=== PATIENT | female | born 1990 | race Caucasian/White ===

== ENCOUNTER 2021-07-22 20:39 | Emergency (ER) | payer OTHER, SELFPAY ==
--- NOTE | 2021-07-22 | ECG_ITS ---
Test Reason : DYSPNEA Blood Pressure : / mmHG Vent. Rate : 082 BPM Atrial Rate : 082 BPM P-R Int : 146 ms QRS Dur : 094 ms QT Int : 360 ms P-R-T Axes : 049 -15 000 degrees QTc Int : 420 ms Normal sinus rhythm Incomplete right bundle branch block Minimal voltage criteria for LVH, may be normal variant ( R in aVL ) Borderline ECG When compared with ECG of 18-JAN-2019 09:59, Previous ECG has undetermined rhythm, needs review Referred By: Generic ED Physician Electronically Signed By:IRVING FLANNERY MD
--- NOTE | ~2021-07-22 | XR_ITS ---
EXAMINATION: XR CHEST CLINICAL INFORMATION: Shortness of breath. COMPARISON: Chest radiograph 01/18/2019 TECHNIQUE: Frontal view of the chest was obtained. FINDINGS: No significant abnormality is noted involving the heart, lungs, mediastinum, bony thorax or soft tissues. There is a loop recorder to the left of the thoracic spine. XR/XR chest 1V IMPRESSION: Unremarkable examination.
[2021-07-22 20:42] VITALS: BP 141/91; PULSE 94; RESP 18; TEMP 35.6; O2SAT 100; BMI 33.8
[2021-07-22 21:02] LABS: MANUAL DIFF FLAG NO
[2021-07-22 21:05] VITALS: BP 125/91; PULSE 82; RESP 17; TEMP 37.3; O2SAT 97
--- NOTE | 2021-07-22 21:11 | ED_ITS ---
HPI - SOB/Dyspnea General Chief Complaint: Arrhythmia/Palpitations Stated Complaint: Sob, chest pains Time Seen by Provider: 07/22/21 21:11 Source: patient Mode of arrival: ambulatory Limitations: no limitations History of Present Illness HPI Narrative: Patient with feeling congested with dry cough for last 3 days already vaccinated against COVID had subjective fever on arrival patient is saturating 100% at room air cough is mostly dry with clear nasal discharge Related Data Previous Rx's Medication Instructions Recorded albuterol sulfate 90 mcg/actuation 2 puff INHALATION Q4-6H #8.5 g 07/22/21 aerosol inhaler (ProAir HFA) codeine 10 mg-guaifenesin 100 mg/5 10 ml PO Q6H PRN #237 ml 07/22/21 mL oral liquid prednisone 20 mg tablet 40 mg PO DAILY #10 tab 07/22/21 Allergies Allergy/AdvReac Type Severity Reaction Status Date / Time No Known Allergies Allergy Unverified 11/30/19 16:24 [No Known Allergies*] Review of Systems Review of Systems: Yes all other systems are reviewed and are negative PMFSH Past Medical History Medical History V-tach Surgical History H/O: Social History Social History Alcohol intake: never Patient Tobacco Use Status: Never used Tobacco Use of substances other than those prescribed or required for medical reasons: No Advance Directives: Yes Advance Directives Information Provided: No Advance Directives on File: No Patient : No Physical Exam Vital Signs: Vital Signs: Last Vital Signs Temp 98.2 F 07/22/21 22:47 Pulse 78 07/22/21 22:47 Resp 17 07/22/21 22:47 BP 131/94 H 07/22/21 22:47 Pulse Ox 99 07/22/21 22:47 BMI result Body Mass Index 33.8 Appearance: Alert. Oriented X3. No acute distress. Frequent dry cough Eyes: No pallor ENT: Pharynx normal. Oral Mucosa moist Neck: Normal inspection. Neck supple. CVS: Normal heart rate and rhythm. Pulses normal. Respiratory: No respiratory distress. Equal air entry bilateral, no wheezing/rales, prolonged expiration with frequent cough Abdomen: Soft and nontender. Bowel sounds are present, no mass palpable, no CVA tenderness Skin: Skin warm and dry. Normal skin color. Normal skin turgor. Extremities: No lower extremity edema. No calf tenderness Neuro: Oriented X 3. No motor deficit. MDM - SOB/Dyspnea MDM Narrative Medical decision making narrative: Patient dry cough for 3- 4 days COVID negative likely bronchitis will discharge patient home on prednisone and inhaler chest x-ray negative Lab Data Attestation: I reviewed the patient's lab results. Result diagrams: 07/22/21 20:54 07/22/21 20:54 Labs: Lab Results 07/22/21 07/22/21 07/22/21 Range/Units 20:54 20:54 20:54 WBC 6.4 (4.8-10.8) X10*3/uL RBC 4.73 (4.20-5.50) X10*6/uL Hgb 12.7 (12.0-16.0) g/dl Hct 39.7 (37.0-47.0) % MCV 83.9 (80.0-98.0) fL MCH 26.8 L (27.0-33.0) pg MCHC 32.0 (31.0-35.0) g/dl RDW 13.2 (11.0-16.0) % Plt Count 224 (160-400) X10*3/uL MPV 10.9 (9.4-12.3) fL Immature Gran % (Auto) 0.3 (0.0-0.4) % Neut % (Auto) 55.5 (45-73) % Lymph % (Auto) 34.7 (20-40) % [place] % (Auto) 7.2 (2-11) % Eos % (Auto) 2.0 (0-4) % Baso % (Auto) 0.3 (0-2) % Lymph # (Auto) 2.2 (1.2-4.9) X10*3/uL [place] # (Auto) 0.5 (0.1-1.2) X10*3/uL Eos # (Auto) 0.1 (0.0-0.4) X10*3/uL Baso # (Auto) 0.0 (0.0-0.2) X10*3/uL Abs Immat Gran (auto) 0.02 (0.00-0.03) X10*3/uL Absolute Neuts (auto) 3.5 (2.0-8.3) x10*3/uL Absolute Nucleated RBC 0.000 (0.0-0.012) X10*3/uL Nucleated RBC % (auto) 0.0 (0.0-0.2) /100WBC Sodium 139 (135-145) mmol/L Potassium 4.6 (3.3-5.1) mmol/L Chloride 106 (96-108) mmol/L Carbon Dioxide 27 (22-29) mmol/L Anion Gap 11 L (12-20) BUN 16 (9-16) mg/dL Creatinine 0.85 (0.5-1.4) mg/dL Estim Creat Clear Calc 97.2 Estimated GFR > 60 Random Glucose 90 (60-115) mg/dL Calcium 10.1 (8.4-10.2) mg/dL Total Bilirubin 0.4 (0.0-1.0) mg/dL AST 24 (5-31) U/L ALT 41 H (0-31) U/L Alkaline Phosphatase 54 (39-117) U/L Troponin I High Sens < 3.5 (<3.5-17.0) ng/L Total Protein 7.4 (6.5-8.0) g/dL Albumin 4.4 (3.5-5.0) g/dL COVID-19 (STEPHEN) (Negative) COVID-19 Clin Com Influenza Type A (MOE) (Negative) Influenza Type A (PCR) (Negative) Influenza Type B (MOE) (Negative) Influenza Type B (PCR) (Negative) Influenza A & B Note RSV RNA Qual (PCR) (Negative) SARS-CoV-2 RNA (RT-PCR) (Negative) 07/22/21 07/22/21 07/22/21 Range/Units 20:54 20:54 21:37 WBC (4.8-10.8) X10*3/uL RBC (4.20-5.50) X10*6/uL Hgb (12.0-16.0) g/dl Hct (37.0-47.0) % MCV (80.0-98.0) fL MCH (27.0-33.0) pg MCHC (31.0-35.0) g/dl RDW (11.0-16.0) % Plt Count (160-400) X10*3/uL MPV (9.4-12.3) fL Immature Gran % (Auto) (0.0-0.4) % Neut % (Auto) (45-73) % Lymph % (Auto) (20-40) % [place] % (Auto) (2-11) % Eos % (Auto) (0-4) % Baso % (Auto) (0-2) % Lymph # (Auto) (1.2-4.9) X10*3/uL [place] # (Auto) (0.1-1.2) X10*3/uL Eos # (Auto) (0.0-0.4) X10*3/uL Baso # (Auto) (0.0-0.2) X10*3/uL Abs Immat Gran (auto) (0.00-0.03) X10*3/uL Absolute Neuts (auto) (2.0-8.3) x10*3/uL Absolute Nucleated RBC (0.0-0.012) X10*3/uL Nucleated RBC % (auto) (0.0-0.2) /100WBC Sodium (135-145) mmol/L Potassium (3.3-5.1) mmol/L Chloride (96-108) mmol/L Carbon Dioxide (22-29) mmol/L Anion Gap (12-20) BUN (9-16) mg/dL Creatinine (0.5-1.4) mg/dL Estim Creat Clear Calc Estimated GFR Random Glucose (60-115) mg/dL Calcium (8.4-10.2) mg/dL Total Bilirubin (0.0-1.0) mg/dL AST (5-31) U/L ALT (0-31) U/L Alkaline Phosphatase (39-117) U/L Troponin I High Sens (<3.5-17.0) ng/L Total Protein (6.5-8.0) g/dL Albumin (3.5-5.0) g/dL COVID-19 (STEPHEN) Negative (Negative) COVID-19 Clin Com See Note Influenza Type A (MOE) Negative (Negative) Influenza Type A (PCR) NEGATIVE (Negative) Influenza Type B (MOE) Negative (Negative) Influenza Type B (PCR) NEGATIVE (Negative) Influenza A & B Note See Note RSV RNA Qual (PCR) NEGATIVE (Negative) SARS-CoV-2 RNA (RT-PCR) NEGATIVE (Negative) Discharge Plan Discharge Clinical Impression: Acute bronchitis Patient Disposition: Home, Self-Care Instructions: Acute Bronchitis (ED) Additional Instructions: Drink plenty of fluids and take medication as prescribed Follow with PCP if not better Tylenol/Motrin for pain/fever Prescriptions: New codeine-guaifenesin 10-100 mg/5 mL liquid 10 ml PO Q6H PRN (Reason: cough) Qty: 237 0RF albuterol sulfate [ProAir HFA] 90 mcg/actuation HFA aerosol inhaler 2 puff inhalation Q4-6H Qty: 8.5 0RF prednisone 20 mg tablet 40 mg PO DAILY Qty: 10 0RF Interventions: ED Discharge Assessment Last Done: 07/23/21 00:13 Discharge Date/Time: 07/23/21 00:14
[2021-07-22 21:13] LABS: Basophils Percent Auto 0.3 % (0-2); Eosinophils Absolute Auto 0.1 X10*3/uL (0.0-0.4); Hematocrit 39.7 % (37.0-47.0); Hemoglobin 12.7 g/dl (12.0-16.0); Imm Gran Abs Auto 0.02 X10*3/uL (0.00-0.03); Imm Gran Pct Auto 0.3 % (0.0-0.4); Lymphocytes Absolute Auto 2.2 X10*3/uL (1.2-4.9); Lymphocytes Percent Auto 34.7 % (20-40); Mean Corpuscular Hemoglobin 26.8 pg (27.0-33.0); Mean Corpuscular Volume 83.9 fL (80.0-98.0); Mean Platelet Volume 10.9 fL (9.4-12.3); Monocytes Absolute Auto 0.5 X10*3/uL (0.1-1.2); Monocytes Percent Auto 7.2 % (2-11); Neutrophils Absolute Auto 3.5 x10*3/uL (2.0-8.3); Neutrophils Percent Auto 55.5 % (45-73); Platelet Count 224 X10*3/uL (160-400); Red Blood Count 4.73 X10*6/uL (4.20-5.50); Red Cell Distribution Width 13.2 % (11.0-16.0); White Blood Count 6.4 X10*3/uL (4.8-10.8)
[2021-07-22 21:24] LABS: COVID-19 Test Negative (Negative); IDNOW Serial# 9DB6401D
[2021-07-22 21:25] LABS: Influenza A Negative (Negative); Influenza B2 Negative (Negative)
[2021-07-22 21:30] LABS: Alanine Aminotransferase 41 U/L (0-31); Albumin Level 4.4 g/dL (3.5-5.0); Alkaline Phosphatase 54 U/L (39-117); Anion Gap 11 (12-20); Aspartate Amino Transferase 24 U/L (5-31); Bilirubin Total 0.4 mg/dL (0.0-1.0); Blood Urea Nitrogen 16 mg/dL (9-16); Calcium 10.1 mg/dL (8.4-10.2); Carbon Dioxide 27 mmol/L (22-29); Chloride 106 mmol/L (96-108); Creatinine Clr Calc Pharmacy 97.2; Estimated Glomerular Filt Rate > 60; Glucose Random 90 mg/dL (60-115); Potassium 4.6 mmol/L (3.3-5.1); Sodium 139 mmol/L (135-145); Total Protein 7.4 g/dL (6.5-8.0)
[2021-07-22 21:34] LABS: Troponin-I High Sensitivity < 3.5 ng/L (<3.5-17.0)
[2021-07-22] MEDS: guaiFEN/Codeine SF 200/20/10ML 10 ML LIQUID PO (21:35)
[2021-07-22 22:26] LABS: Influenza A PCR NEGATIVE (Negative); Influenza B PCR NEGATIVE (Negative); Resp Syncy Virus RNA Qual PCR NEGATIVE (Negative); SARS COV2 PCR INHOUSE NEGATIVE (Negative)
[2021-07-22 22:47] VITALS: BP 131/94; PULSE 78; RESP 17; TEMP 36.8; O2SAT 99
[2021-07-23] MEDS: Albuterol Sulfate 90 MCG 8 GM INHALER 4 PUFF INHALE (00:10)
[2021-07-23] MEDS: predniSONE 20 MG TABLET 60 MG PO (00:10)
--- NOTE | 2021-07-23 08:06 | ECG_ITS ---
Test Reason : CHEST PAIN Blood Pressure : / mmHG Vent. Rate : 076 BPM Atrial Rate : 076 BPM P-R Int : 152 ms QRS Dur : 092 ms QT Int : 358 ms P-R-T Axes : 034 -13 -08 degrees QTc Int : 402 ms Normal sinus rhythm Incomplete right bundle branch block Minimal voltage criteria for LVH, may be normal variant ( R in aVL ) Borderline ECG When compared with ECG of 22-JUL-2021 20:42, No significant change was found Referred By: Dereje Garnica Electronically Signed By:IRVING FLANNERY MD
== END 2021-07-23 00:14 | disposition home or self-care (01) ==
PROVIDERS: Emergency Provider Internal Medicine
DX: J20.9 Acute bronchitis, unspecified (principal); R06.02 Shortness of breath; R00.2 Palpitations; R05.9 Cough, unspecified; Z20.822 Contact with and (suspected) exposure to COVID-19; Z79.899 Other long term (current) drug therapy
CPT/HCPCS: 0241U; 71045; 80053; 84484; 85025; 87502; 87635; 93005; 99284

== ENCOUNTER 2021-08-28 16:25 | Emergency (ER) | payer OTHER, SELFPAY ==
--- NOTE | ~2021-08-28 | US_ITS ---
EXAMINATION: US PELVIS CLINICAL INFORMATION: Right-sided abdominal pain. COMPARISON: Right lower quadrant pain TECHNIQUE: Ultrasound of the pelvis is performed using both transabdominal and transvaginal transducers along with Doppler. Transvaginal imaging is performed due to inadequate visualization transabdominally. FINDINGS: Uterus: The uterus is anteverted and measures 9.4 cm in length, 4.1 cm in height and 5.7 cm in transverse dimension. Endometrial stripe measures 0.9 cm. The double wall endometrial thickness is 0.9 cm. The uterus is smooth in contour and has normal myometrial echogenicity. No visible fibroid. There are small anechoic cysts in the cervix suggestive of nabothian cysts. Adnexa: Both ovaries are visualized. Right ovary measures 3.5 by 4.3 x 2.4 cm and volume 18.91 mL. There is intermittent normal and decreased flow seen to the right ovary on color images and Doppler flow with whirl pool sign in right adnexa suspicious for possible intermittent ovarian torsion. There are several small cysts with largest cyst measuring 1.6 x 1.8 x 1.2 cm. Left ovary measures 3.1 x 2.8 x 3.1 cm and volume 11.98 mL. Normal arterial and venous color and Doppler flow seen to left ovary. There is no free fluid in cul-de-sac. US/US pelvic and transvaginal IMPRESSION: Findings highly suspicious for intermittent right ovarian torsion. The right ovary is slightly enlarged compared to left side likely secondary to edema. Several small right ovarian cysts with largest cyst measuring 2 cm The left ovary and the uterus is unremarkable. CT abdomen and pelvis performed subsequently to ultrasound revealed normal appendix. Results discussed with Dr. Holt in ER by phone at 7:25 PM
--- NOTE | ~2021-08-28 | CT_ITS ---
EXAMINATION: CT ABDOMEN AND PELVIS WITHOUT CONTRAST CLINICAL INFORMATION: Right-sided abdominal pain COMPARISON: None TECHNIQUE: Multidetector volumetric imaging was performed from the superior aspect of the liver through the pubic symphysis. Sagittal and coronal reformatted images were obtained on the technologist's workstation. This CT examination was performed using dose optimization techniques as appropriate, variously including the following: *Automated exposure control *Adjustment of mA and/or kV according to patient size (this includes techniques or standardized protocols for targeted exams where dose is matched to indication/reason for exam; i.e. extremities or head) *Use of iterative reconstruction technique DLP: 652 mGy-cm FINDINGS: LUNG BASES: Minimal streaky bibasilar atelectasis. Lung bases otherwise clear. LIVER, GALLBLADDER, AND BILIARY TREE: Liver is enlarged measuring 19.2 cm in craniocaudal length. Diffuse hepatic hypoattenuation compatible with marked steatosis. Small areas of relative fatty sparing about the gallbladder. No appreciable liver lesions. No morphologic features of cirrhosis. No biliary ductal dilation. The gallbladder is unremarkable with no evidence of radiopaque gallstones, gallbladder wall thickening, or obvious pericholecystic inflammatory changes. PANCREAS: Unremarkable. SPLEEN: Unremarkable. ADRENAL GLANDS: Unremarkable. KIDNEYS AND URETERS: 2-3 mm nonobstructing left lower pole renal calculus. Small 0.9 cm low-density cortical focus in the left lower pole, too small to characterize though likely a small cyst. No other renal lesions. No hydronephrosis or perinephric collections. BLADDER: Unremarkable. GASTROINTESTINAL TRACT: The small and large bowel are unremarkable. The appendix is unremarkable. No intra-abdominal free air. ABDOMINAL WALL: Small fat-containing umbilical hernia. LYMPH NODES: No lymphadenopathy. VASCULAR: Normal caliber abdominal aorta. PELVIC VISCERA: Gynecologic structures are grossly unremarkable. Trace free pelvic fluid. OSSEOUS STRUCTURES: No acute fracture or suspicious osseous lesion. CT/CT abdomen pelvis wo con IMPRESSION: 1. No evidence of acute appendicitis or other acute intra-abdominal process. 2. Hepatomegaly and pronounced hepatic steatosis.
[2021-08-28 16:35] VITALS: BP 125/89; PULSE 74; RESP 18; TEMP 36.8; O2SAT 98; BMI 32.9
--- NOTE | 2021-08-28 17:39 | ED_ITS ---
HPI - Abdominal Pain General Chief Complaint: Abdominal Pain Stated Complaint: right sided abd pain Time Seen by Provider: 08/28/21 17:26 Source: patient Mode of arrival: ambulatory Limitations: no limitations History of Present Illness HPI narrative: 30-year-old female came in for evaluation of abdominal pain. A week ago patient had a 1 time right-sided abdominal pain then improved, at 03:00 last night patient woke up with severe right-sided abdominal pain that has been constant since 03:00, pain described as severe 10/10 localized to the right side of the abdomen with no radiation, associated with nausea but no vomiting, decreased p.o. intake. had the urge to move bowel but no diarrhea or constipation, no fever chills, no vaginal bleed or discharge, no dysuria, no frequency urination , no fever. Pain is not related to food, nothing relieves the pain. Patient decline possibility of pain . Patient is a LMP 2 weeks ago. Decline risk for STD. Past surgical history is with tubal ligation. Related Data Previous Rx's Medication Instructions Recorded albuterol sulfate 90 mcg/actuation 2 puff inhalation Q4-6H #8.5 grams 07/22/21 aerosol inhaler (ProAir HFA) Allergies Allergy/AdvReac Type Severity Reaction Status Date / Time No Known Allergies Allergy Verified 08/28/21 16:11 [No Known Allergies*] Review of Systems Review of Systems All other systems are reviewed and are negative Constitutional: Reports as per HPI and Reports no additional constitutional complaints Eyes: Reports as per HPI and Reports no additional eye complaints Reports system reviewed and no additional complaints, except as documented Cardiovascular: Reports as per HPI and Reports no additional cardiovascular c omplaints Respiratory: Reports as per HPI and Reports no additional respiratory complaints Gastrointestinal: Reports as per HPI and Reports no additional gastrointestinal complaints Genitourinary: Reports no additional female genitourinary complaints Musculoskeletal: Reports no additional musculoskeletal complaints Skin/Breast: Reports system reviewed and no additional complaints, except as docu Psychiatric: Reports no additional psychiatric complaints Endocrine: Reports no additional endocrine complaints Hematologic/Lymphatic: Reports no additional hematologic/lymphatic complaints Allergic/Immunologic: Reports no additional allergic/immunologic complaints Reports system reviewed and no additional complaints, except as documented and Reports Abnormal speech present FOR[facility]LY [facility], [facility] Past Medical History Medical History V-tach Surgical History H/O: Family History Family History Father Substance use disorder Social History Social History Housing: House Alcohol intake: never Patient Tobacco Use Status: Never used Tobacco e-Cigarette/Vaping Use: Never Used Advance Directives: No Advance Directives Information Provided: No service: No Current occupational status: employed Cognitive needs: No Hearing needs: No Vision needs: Yes Physical Exam ED Vital Signs: Vital Signs - 24 hr 08/28/21 16:35 08/28/21 18:17 Temperature 98.3 F 98.4 F Pulse Rate 74 67 Respiratory Rate 18 16 Blood Pressure 125/89 136/96 H Pulse Oximetry 98 100 Oxygen Delivery Method Room Air Room Air BMI result Body Mass Index 32.9 vital signs have been reviewed as appeared to be correct. Blood pressure normal. Heart rate normal. Respiration rate normal. Temperature normal. Oxygen saturation normal. Appearance: Alert. Oriented X3. No acute distress. Head: Normal external exam. Normocephalic. Atraumatic. No Barboza signs noted. No raccoon eyes noted Eyes: PERRLA. EOMI. Conjunctiva and sclera normal. Eyelids normal. ENT: TM's Normal. Pharynx normal. Uvula midline. Moist mucous membranes. No trismus noted. No drooling noted. No muffled voice noted. Neck: Normal inspection. Neck supple. FROM. No adenopathy. Thyroid Normal. No meningeal signs. No neck mass noted. CVS: Normal heart rate and rhythm. Heart sound normal. No murmurs noted. Pulses normal throughout. Respiratory: No respiratory distress. Painless inspiration. Breath sounds normal. No wheezes/rales/rhonchi noted. Chest nontender. No accessory muscle usage noted or decreased air movement noted. Abdomen: Soft, right abdominal tenderness, mild rebound tenderness, voluntary guarding.. Bowel sounds normal in all 4 quadrants. No distention noted. No organomegaly noted. No visible injury noted. Back: No CVA tenderness. Full range of motion noted. Skin: Skin warm and dry. Normal skin color. Normal skin turgor. No rashes/lesions/lacerations noted. Extremities: No lower extremity edema. Extremities exhibit normal range of motion. Extremities nontender. Neuro: Oriented X 3. Cranial nerve exam: II-XII are grossly intact No motor deficit. No sensory deficit. Reflexes normal. Course Course Course Narrative: 30-year-old female with right lower abdominal pain, ultrasound is consistent with intermittent ovarian torsion, there is no OBGYN service available at [facility] called made to [facility] this case discussed with Dr. Brady patient has been accepted to , there is a delay in an ambulance transportation today will call for emergency transportation to [facility] With light and [place]. MDM - Abdominal Pain Lab Data Attestation: I reviewed the patient's lab results. Result diagrams: 08/28/21 17:56 08/28/21 17:56 Labs: Lab Results 08/28/21 08/28/21 08/28/21 Range/Units 17:49 17:49 17:56 WBC 7.8 (4.8-10.8) X10*3/uL RBC 4.78 (4.20-5.50) X10*6/uL Hgb 12.9 (12.0-16.0) g/dl Hct 40.7 (37.0-47.0) % MCV 85.1 (80.0-98.0) fL MCH 27.0 (27.0-33.0) pg MCHC 31.7 (31.0-35.0) g/dl RDW 13.6 (11.0-16.0) % Plt Count 237 (160-400) X10*3/uL MPV 10.5 (9.4-12.3) fL Immature Gran % (Auto) 0.3 (0.0-0.4) % Neut % (Auto) 59.8 (45-73) % Lymph % (Auto) 31.5 (20-40) % [place] % (Auto) 6.9 (2-11) % Eos % (Auto) 1.2 (0-4) % Baso % (Auto) 0.3 (0-2) % Lymph # (Auto) 2.5 (1.2-4.9) X10*3/uL [place] # (Auto) 0.5 (0.1-1.2) X10*3/uL Eos # (Auto) 0.1 (0.0-0.4) X10*3/uL Baso # (Auto) 0.0 (0.0-0.2) X10*3/uL Abs Immat Gran (auto) 0.02 (0.00-0.03) X10*3/uL Absolute Neuts (auto) 4.7 (2.0-8.3) x10*3/uL Absolute Nucleated RBC 0.000 (0.0-0.012) X10*3/uL Nucleated RBC % (auto) 0.0 (0.0-0.2) /100WBC Sodium (135-145) mmol/L Potassium (3.3-5.1) mmol/L Chloride (96-108) mmol/L Carbon Dioxide (22-29) mmol/L Anion Gap (12-20) BUN (9-16) mg/dL Creatinine (0.5-1.4) mg/dL Estim Creat Clear Calc Estimated GFR Random Glucose (60-115) mg/dL Calcium (8.4-10.2) mg/dL Total Bilirubin (0.0-1.0) mg/dL Direct Bilirubin (0.0-0.5) mg/dL AST (5-31) U/L ALT (0-31) U/L Alkaline Phosphatase (39-117) U/L Total Protein (6.5-8.0) g/dL Albumin (3.5-5.0) g/dL Lipase (8-78) U/L Urine Color YELLOW Urine Appearance HAZY Urine pH 6.5 (5.0-8.0) Ur Specific [place] 1.025 (1.005-1.025) Urine Protein NEG (NEG-TRACE) MG/DL Urine Glucose (UA) NEG (NEG) MG/DL Urine Ketones NEG (NEG) MG/DL Urine Blood NEG (NEG) Urine Nitrite NEG (NEG) Ur Leukocyte Esterase TRACE H (NEG) Urine RBC 0 (0) /HPF Urine WBC 0-2 (0-4) /HPF Ur Squamous Epith Cells 1+ /LPF Urine Bacteria 1+ /LPF Urine Test NEGATIVE (NEGATIVE) 08/28/21 Range/Units 17:56 WBC (4.8-10.8) X10*3/uL RBC (4.20-5.50) X10*6/uL Hgb (12.0-16.0) g/dl Hct (37.0-47.0) % MCV (80.0-98.0) fL MCH (27.0-33.0) pg MCHC (31.0-35.0) g/dl RDW (11.0-16.0) % Plt Count (160-400) X10*3/uL MPV (9.4-12.3) fL Immature Gran % (Auto) (0.0-0.4) % Neut % (Auto) (45-73) % Lymph % (Auto) (20-40) % [place] % (Auto) (2-11) % Eos % (Auto) (0-4) % Baso % (Auto) (0-2) % Lymph # (Auto) (1.2-4.9) X10*3/uL [place] # (Auto) (0.1-1.2) X10*3/uL Eos # (Auto) (0.0-0.4) X10*3/uL Baso # (Auto) (0.0-0.2) X10*3/uL Abs Immat Gran (auto) (0.00-0.03) X10*3/uL Absolute Neuts (auto) (2.0-8.3) x10*3/uL Absolute Nucleated RBC (0.0-0.012) X10*3/uL Nucleated RBC % (auto) (0.0-0.2) /100WBC Sodium 139 (135-145) mmol/L Potassium 4.7 (3.3-5.1) mmol/L Chloride 107 (96-108) mmol/L Carbon Dioxide 26 (22-29) mmol/L Anion Gap 11 L (12-20) BUN 14 (9-16) mg/dL Creatinine 0.78 (0.5-1.4) mg/dL Estim Creat Clear Calc 104.4 Estimated GFR > 60 Random Glucose 87 (60-115) mg/dL Calcium 9.7 (8.4-10.2) mg/dL Total Bilirubin 0.4 (0.0-1.0) mg/dL Direct Bilirubin 0.2 (0.0-0.5) mg/dL AST 18 (5-31) U/L ALT 37 H (0-31) U/L Alkaline Phosphatase 52 (39-117) U/L Total Protein 7.2 (6.5-8.0) g/dL Albumin 4.5 (3.5-5.0) g/dL Lipase 17 (8-78) U/L Urine Color Urine Appearance Urine pH (5.0-8.0) Ur Specific [place] (1.005-1.025) Urine Protein (NEG-TRACE) MG/DL Urine Glucose (UA) (NEG) MG/DL Urine Ketones (NEG) MG/DL Urine Blood (NEG) Urine Nitrite (NEG) Ur Leukocyte Esterase (NEG) Urine RBC (0) /HPF Urine WBC (0-4) /HPF Ur Squamous Epith Cells /LPF Urine Bacteria /LPF Urine Test (NEGATIVE) Imaging Data Pelvic ultrasound: Attestation: I personally reviewed and interpreted this imaging study as follows: Radiologist's impression: Findings highly suspicious for intermittent right ovarian torsion. The right ovary is slightly enlarged compared to left side likely secondary to edema. Several small right ovarian cysts with largest cyst measuring 2 cm ? The left ovary and the uterus is unremarkable. ? CT scan - abdomen: Attestation: I personally reviewed and interpreted this imaging study as follows: Radiologist's impression: 1. No evidence of acute appendicitis or other acute intra-abdominal process. 2. Hepatomegaly and pronounced hepatic steatosis. ? Discharge Plan Discharge Clinical Impression: Abdominal pain, Torsion of ovary Patient Disposition: [facility] Hospital Transfer Details: [facility] Prescriptions: No Action albuterol sulfate [ProAir HFA] 90 mcg/actuation HFA aerosol inhaler 2 puff inhalation Q4-6H Qty: 8.5 0RF
[2021-08-28 17:57] LABS: Appearance Urine HAZY; Color Urine YELLOW; Glucose Urine UA NEG (NEG); Leukocyte Esterase Urine TRACE (NEG); Nitrite Urine NEG (NEG); PH 6.5 (5.0-8.0); Specific Gravity - Urine 1.025 (1.005-1.025); Urine Blood NEG (NEG); Urine Ketones NEG (NEG); Urine Protein NEG (NEG-TRACE)
[2021-08-28] MEDS: Morphine Sulfate 2 MG/ML CARTRIDGE IVPUSH (17:58)
[2021-08-28] MEDS: 0.9 % Sodium Chloride 1,000 ML 999 ML IV (17:58)
[2021-08-28 17:59] LABS: UPreg QC Valid YES; Urine Pregnancy NEGATIVE (NEGATIVE)
[2021-08-28 18:04] LABS: MANUAL DIFF FLAG NO
[2021-08-28 18:04] LABS: Bacteria Urine 1+ /LPF; RBC Urine 0 /HPF (0); Squamous Epithelial Cell Urine 1+ /LPF; WBC Urine 0-2 /HPF (0-4)
[2021-08-28 18:08] LABS: Basophils Percent Auto 0.3 % (0-2); Eosinophils Absolute Auto 0.1 X10*3/uL (0.0-0.4); Eosinophils Percent Auto 1.2 % (0-4); Hematocrit 40.7 % (37.0-47.0); Hemoglobin 12.9 g/dl (12.0-16.0); Imm Gran Abs Auto 0.02 X10*3/uL (0.00-0.03); Imm Gran Pct Auto 0.3 % (0.0-0.4); Lymphocytes Absolute Auto 2.5 X10*3/uL (1.2-4.9); Lymphocytes Percent Auto 31.5 % (20-40); Mean Corpuscular HGB Conc 31.7 g/dl (31.0-35.0); Mean Corpuscular Volume 85.1 fL (80.0-98.0); Mean Platelet Volume 10.5 fL (9.4-12.3); Monocytes Absolute Auto 0.5 X10*3/uL (0.1-1.2); Monocytes Percent Auto 6.9 % (2-11); Neutrophils Absolute Auto 4.7 x10*3/uL (2.0-8.3); Neutrophils Percent Auto 59.8 % (45-73); Platelet Count 237 X10*3/uL (160-400); Red Blood Count 4.78 X10*6/uL (4.20-5.50); Red Cell Distribution Width 13.6 % (11.0-16.0); White Blood Count 7.8 X10*3/uL (4.8-10.8)
[2021-08-28 18:17] VITALS: BP 136/96; PULSE 67; RESP 16; TEMP 36.9; O2SAT 100
[2021-08-28 18:20] LABS: Alanine Aminotransferase 37 U/L (0-31); Albumin Level 4.5 g/dL (3.5-5.0); Alkaline Phosphatase 52 U/L (39-117); Anion Gap 11 (12-20); Aspartate Amino Transferase 18 U/L (5-31); Bilirubin Direct 0.2 mg/dL (0.0-0.5); Bilirubin Total 0.4 mg/dL (0.0-1.0); Blood Urea Nitrogen 14 mg/dL (9-16); Calcium 9.7 mg/dL (8.4-10.2); Carbon Dioxide 26 mmol/L (22-29); Chloride 107 mmol/L (96-108); Creatinine Clr Calc Pharmacy 104.4; Estimated Glomerular Filt Rate > 60; Glucose Random 87 mg/dL (60-115); Lipase 17 U/L (8-78); Potassium 4.7 mmol/L (3.3-5.1); Sodium 139 mmol/L (135-145); Total Protein 7.2 g/dL (6.5-8.0)
--- NOTE | 2021-08-28 19:39 | PC.NURSE ---
Assumed care of pt Pt c/o worsening pain. Per pt, pain medication helped earlier but has come back. Dr. Holt made aware AxO x 4, clear and complete sentences Will continue to monitor
[2021-08-28] MEDS: HYDROmorphone HCl 2 MG/ML VIAL IVPUSH (19:49)
[2021-08-28] MEDS: ondansetron HCL 4 MG/2 ML VIAL IVPUSH (20:01)
[2021-08-28 20:21] LABS: COVID-19 Test Negative (Negative)
[2021-08-28] MEDS: Metoclopramide HCl 10 MG/2 ML VIAL IVPUSH (20:25)
--- NOTE | 2021-08-28 20:25 | PC.NURSE ---
This US/PCT called [facility] tx line@[phone] per , accepted patient to [facility]. Called [facility] due to [employer] insurance @1999 for a Stat S tx,they were unable to transfer, gave me a run number [id number]. Action called @2005
== END 2021-08-28 20:37 | disposition short-term general hospital (02) ==
PROVIDERS: Emergency Provider Emergency Medicine; PCP Internal Medicine
DX: N83.511 Torsion of right ovary and ovarian pedicle (principal); R10.9 Unspecified abdominal pain; Z20.822 Contact with and (suspected) exposure to COVID-19; R11.0 Nausea
CPT/HCPCS: 36415; 74176; 76830; 76856; 80048; 80076; 81001; 81025; 83690; 85025; 87635; 96361; 96374; 96375; 99285; J1170; J2270; J2405; J2765

== ENCOUNTER 2021-11-25 09:54 | Emergency (ER) | payer OTHER, SELFPAY ==
--- NOTE | ~2021-11-25 | CT_ITS ---
EXAMINATION: CT ABDOMEN AND PELVIS WITHOUT CONTRAST CLINICAL INFORMATION: Left flank pain. COMPARISON: 08/28/2021 CT scan of the abdomen. TECHNIQUE: Multidetector volumetric imaging was performed from the superior aspect of the liver through the pubic symphysis. Sagittal and coronal reformatted images were obtained on the technologist's workstation. Lack of intravenous and oral contrast limits visceral evaluation. This CT examination was performed using dose optimization techniques as appropriate, variously including the following: *Automated exposure control *Adjustment of mA and/or kV according to patient size (this includes techniques or standardized protocols for targeted exams where dose is matched to indication/reason for exam; i.e. extremities or head) *Use of iterative reconstruction technique DLP: 705 mGy-cm FINDINGS: LUNG BASES: The visualized lung bases are unremarkable. LIVER, GALLBLADDER, AND BILIARY TREE: Hepatic enlargement and steatosis without focal abnormality. Focal fatty sparing adjacent to the gallbladder. No gallbladder/biliary abnormality. PANCREAS: Unremarkable. SPLEEN: Unremarkable. ADRENAL GLANDS: Unremarkable. KIDNEYS AND URETERS: Left kidney lower pole intrarenal calculus measuring 0.3 cm (image 66, series 5). On the same image is a small cyst measuring 1.4 cm. BLADDER: Unremarkable. GASTROINTESTINAL TRACT: The stomach and small bowel and appendix are unremarkable. The colon and rectum are unremarkable. ABDOMINAL WALL: Small fat-containing umbilical hernia without associated abnormality. LYMPH NODES: No lymphadenopathy. VASCULAR: Unremarkable. PELVIC VISCERA: Unremarkable. OSSEOUS STRUCTURES: Unremarkable. CT/CT abdomen pelvis wo IV con IMPRESSION: 1. No acute intra-abdominal/pelvic abnormality to explain the patient's pain. Nonobstructing left lower pole intrarenal calculus without significant change. 2. Hepatomegaly/steatosis without significant change.
[2021-11-25 10:54] VITALS: BP 145/103; PULSE 86; RESP 18; TEMP 36.8; O2SAT 98; BMI 32.9
[2021-11-25 11:46] LABS: MANUAL DIFF FLAG NO
[2021-11-25 11:51] LABS: Basophils Percent Auto 0.3 % (0-2); Eosinophils Absolute Auto 0.1 X10*3/uL (0.0-0.4); Eosinophils Percent Auto 1.3 % (0-4); Hematocrit 41.9 % (37.0-47.0); Hemoglobin 13.4 g/dl (12.0-16.0); Imm Gran Abs Auto 0.01 X10*3/uL (0.00-0.03); Imm Gran Pct Auto 0.2 % (0.0-0.4); Lymphocytes Absolute Auto 1.8 X10*3/uL (1.2-4.9); Lymphocytes Percent Auto 29.5 % (20-40); Mean Corpuscular Hemoglobin 27.3 pg (27.0-33.0); Mean Corpuscular Volume 85.5 fL (80.0-98.0); Mean Platelet Volume 10.5 fL (9.4-12.3); Monocytes Absolute Auto 0.5 X10*3/uL (0.1-1.2); Monocytes Percent Auto 7.4 % (2-11); Neutrophils Absolute Auto 3.7 x10*3/uL (2.0-8.3); Neutrophils Percent Auto 61.3 % (45-73); Platelet Count 211 X10*3/uL (160-400); Red Cell Distribution Width 13.5 % (11.0-16.0); White Blood Count 6.1 X10*3/uL (4.8-10.8)
[2021-11-25 11:56] LABS: Appearance Urine Cloudy; Color Urine Yellow; Glucose Urine UA Negative (Negative); Leukocyte Esterase Urine Moderate (2+) (Negative); Nitrite Urine Negative (Negative); PH 5.5 (5.0-9.0); Urine Blood Large (3+) (Negative); Urine Ketones Negative (Negative); Urine Protein 30 (1+) mg/dL (Neg-Trace)
[2021-11-25 12:02] LABS: UMIC TRIGGER UACC YES; UPreg QC Valid YES; Urine Pregnancy NEGATIVE (NEGATIVE)
[2021-11-25 12:04] LABS: Anion Gap 11 (12-20); Blood Urea Nitrogen 8 mg/dL (9-16); Calcium 9.5 mg/dL (8.4-10.2); Carbon Dioxide 26 mmol/L (22-29); Chloride 108 mmol/L (96-108); Estimated Glomerular Filt Rate > 60; Glucose Random 97 mg/dL (60-115); Potassium 4.6 mmol/L (3.3-5.1); Sodium 140 mmol/L (135-145)
--- NOTE | 2021-11-25 12:11 | ED.BACK ---
HPI - Back Pain/Injury General Chief Complaint: Back Pain/Injury Stated Complaint: severe back pain Time Seen by Provider: 11/25/21 11:56 Source: patient Mode of arrival: ambulatory Limitations: no limitations History of Present Illness HPI Narrative: 31 yo female hx of mild prior back pain, VTach associated with possible RV enlargement made worse with not on medications now, reports L flank pain and lower back pain since yesterday no vomiting, fevers, or other associated symptoms. NO b/b incontinence, no saddle anesthesia, no IVDA or blood thinners. MD elicited complaint: back pain Pertinent past history: prior back pain Onset (ago): day(s) (yesterday ) Timing: constant Severity: severe Similar Symptoms Previously: No Quality: sharp Location: lumbar spine and left flank Radiation: left upper leg Exacerbating factors: movement Relieving factors: immobilization Context: unknown Associated symptoms: denies other symptoms Treatments prior to arrival: other (tried excedrin yesterday ) Work related injury: No Related Data Previous Rx's Medication Instructions Recorded albuterol sulfate 90 mcg/actuation 2 puff inhalation Q4-6H #8.5 grams 07/22/21 aerosol inhaler (ProAir HFA) diazepam 5 mg tablet (Valium) 5 mg PO TID PRN muscle spasm #12 11/25/21 tabs ibuprofen 600 mg tablet 600 mg PO Q6H PRN pain #30 tabs 11/25/21 lidocaine 4 % topical patch 1 patch topical DAILY PRN pain #10 11/25/21 ea prednisone 20 mg tablet 20 mg PO DAILY 5 days #5 tabs 11/25/21 Allergies Allergy/AdvReac Type Severity Reaction Status Date / Time No Known Allergies Allergy Verified 08/28/21 16:11 [No Known Allergies*] Review of Systems Review of Systems: Constitutional : No Weight loss, No Fever, No Chills, ENT/Mouth : No Hearing loss, No Ear Pain, No Nasal Congestion, No Sinus Pain, No Hoarseness, No sore throat, No Rhinorrhea, No Swallowing Difficulty Cardiovascular : No Chest Pain, No SOB Respiratory : No Cough, No Dyspnea Gastrointestinal : No Nausea, No Vomiting, No Diarrhea, No abdominal Pain, No Hematochezia, No Melena Genitourinary : No Dysuria, No Urinary Frequency, No Hematuria, No Urinary Incontinence, Musculoskeletal : positive back pain Skin : No Skin Lesions, No rash Neuro : No Weakness, No Numbness, No Paresthesias, no loss of bowel or bladder incontinence, no saddle anesthesia All other systems reviewed and are negative PMFSH Past Medical History Attestation statement: The following information was validated with the patient. Medical History V-tach Surgical History H/O: Family History Family History Father Substance use disorder Social History Social History Housing: House Alcohol intake: never Patient Tobacco Use Status: Never used Tobacco e-Cigarette/Vaping Use: Never Used Advance Directives: Yes Advance Directives Information Provided: Yes Advance Directives on File: No service: No Current occupational status: employed Cognitive needs: No Hearing needs: No Vision needs: Yes Physical Exam Vital Signs: Vital Signs: Last Vital Signs Temp 98.2 F 11/25/21 10:54 Pulse 72 11/25/21 12:22 Resp 16 11/25/21 12:22 BP 142/76 H 11/25/21 12:22 Pulse Ox 99 11/25/21 12:22 O2 Del Method 11/25/21 12:22 BMI result Body Mass Index 32.9 Appearance: Alert. Oriented X3. No acute distress. Eyes: Pupils equal, round and reactive to light. ENT: Pharynx normal. Neck: Normal inspection. Neck supple. CVS: Normal heart rate and rhythm. Pulses normal. Respiratory: No respiratory distress. Breath sounds normal. Abdomen: Soft and nontender. Back: moderate L sided flank pain no step offs Skin: Skin warm and dry. Normal skin color. Normal skin turgor. Extremities: No lower extremity edema. No calf ttp Neuro: Oriented X 3. No motor deficit. No sensory deficit. Course Course Course Narrative: UA contaminated likely from menses given epi cells will hold off treatment plan to DC home with pain control and work note MDM - Back Pain/Injury MDM Narrative Medical decision making narrative: 31 yo female hx of mild prior back pain, VTach associated with possible RV enlargement here with c/o L flank pain (is on her period as well) has no b/b incontince or saddle anesthesia. She is in a fair amount of pain. No known trauma. Will obtain basic labs, UA, CT scan for renal colic. IV toradol/PO valium for pain ordered. Possible MSK strain vs renal colic. She is distal NV intact and has no CE symptoms. Lab Data Result diagrams: 11/25/21 11:30 11/25/21 11:30 Labs: Lab Results 11/25/21 11/25/21 11/25/21 Range/Units 11:27 11:27 11:30 WBC 6.1 (4.8-10.8) X10*3/uL RBC 4.90 (4.20-5.50) X10*6/uL Hgb 13.4 (12.0-16.0) g/dl Hct 41.9 (37.0-47.0) % MCV 85.5 (80.0-98.0) fL MCH 27.3 (27.0-33.0) pg MCHC 32.0 (31.0-35.0) g/dl RDW 13.5 (11.0-16.0) % Plt Count 211 (160-400) X10*3/uL MPV 10.5 (9.4-12.3) fL Immature Gran % (Auto) 0.2 (0.0-0.4) % Neut % (Auto) 61.3 (45-73) % Lymph % (Auto) 29.5 (20-40) % Sutter % (Auto) 7.4 (2-11) % Eos % (Auto) 1.3 (0-4) % Baso % (Auto) 0.3 (0-2) % Lymph # (Auto) 1.8 (1.2-4.9) X10*3/uL Sutter # (Auto) 0.5 (0.1-1.2) X10*3/uL Eos # (Auto) 0.1 (0.0-0.4) X10*3/uL Baso # (Auto) 0.0 (0.0-0.2) X10*3/uL Abs Immat Gran (auto) 0.01 (0.00-0.03) X10*3/uL Absolute Neuts (auto) 3.7 (2.0-8.3) x10*3/uL Absolute Nucleated RBC 0.000 (0.0-0.012) X10*3/uL Nucleated RBC % (auto) 0.0 (0.0-0.2) /100WBC Sodium (135-145) mmol/L Potassium (3.3-5.1) mmol/L Chloride (96-108) mmol/L Carbon Dioxide (22-29) mmol/L Anion Gap (12-20) BUN (9-16) mg/dL Creatinine (0.5-1.4) mg/dL Estim Creat Clear Calc Estimated GFR Random Glucose (60-115) mg/dL Calcium (8.4-10.2) mg/dL Urine Color Yellow Urine Appearance Cloudy Urine pH 5.5 (5.0-9.0) Ur Specific Stedman 1.020 (1.005-1.025) Urine Protein 30 (1+) H (Neg-Trace) mg/dL Urine Glucose (UA) Negative (Negative) mg/dL Urine Ketones Negative (Negative) mg/dL Urine Blood Large (3+) H (Negative) Urine Nitrite Negative (Negative) Ur Leukocyte Esterase Moderate (2+) H (Negative) Urine RBC >20 H (0-2) /HPF Urine WBC 11-20 H (0-5) /HPF Ur Squamous Epith Cells 6-10 (0-2) /HPF Urine Bacteria Trace (None Seen) Hyaline Casts 0-2 (0-2) /LPF Urine Test NEGATIVE (NEGATIVE) 11/25/21 Range/Units 11:30 WBC (4.8-10.8) X10*3/uL RBC (4.20-5.50) X10*6/uL Hgb (12.0-16.0) g/dl Hct (37.0-47.0) % MCV (80.0-98.0) fL MCH (27.0-33.0) pg MCHC (31.0-35.0) g/dl RDW (11.0-16.0) % Plt Count (160-400) X10*3/uL MPV (9.4-12.3) fL Immature Gran % (Auto) (0.0-0.4) % Neut % (Auto) (45-73) % Lymph % (Auto) (20-40) % Sutter % (Auto) (2-11) % Eos % (Auto) (0-4) % Baso % (Auto) (0-2) % Lymph # (Auto) (1.2-4.9) X10*3/uL Sutter # (Auto) (0.1-1.2) X10*3/uL Eos # (Auto) (0.0-0.4) X10*3/uL Baso # (Auto) (0.0-0.2) X10*3/uL Abs Immat Gran (auto) (0.00-0.03) X10*3/uL Absolute Neuts (auto) (2.0-8.3) x10*3/uL Absolute Nucleated RBC (0.0-0.012) X10*3/uL Nucleated RBC % (auto) (0.0-0.2) /100WBC Sodium 140 (135-145) mmol/L Potassium 4.6 (3.3-5.1) mmol/L Chloride 108 (96-108) mmol/L Carbon Dioxide 26 (22-29) mmol/L Anion Gap 11 L (12-20) BUN 8 L (9-16) mg/dL Creatinine 0.69 (0.5-1.4) mg/dL Estim Creat Clear Calc 117.0 Estimated GFR > 60 Random Glucose 97 (60-115) mg/dL Calcium 9.5 (8.4-10.2) mg/dL Urine Color Urine Appearance Urine pH (5.0-9.0) Ur Specific Stedman (1.005-1.025) Urine Protein (Neg-Trace) mg/dL Urine Glucose (UA) (Negative) mg/dL Urine Ketones (Negative) mg/dL Urine Blood (Negative) Urine Nitrite (Negative) Ur Leukocyte Esterase (Negative) Urine RBC (0-2) /HPF Urine WBC (0-5) /HPF Ur Squamous Epith Cells (0-2) /HPF Urine Bacteria (None Seen) Hyaline Casts (0-2) /LPF Urine Test (NEGATIVE) Discharge Plan Discharge Clinical Impression: Back spasm Strain of lumbar region Qualifiers: Encounter type: initial encounter Qualified Code(s): S39.012A - Strain of muscle, fascia and tendon of lower back, initial encounter Patient Disposition: Home, Self-Care Instructions: Low Back Strain (ED), Muscle Spasm (ED) Additional Instructions: return to ED for any worsening symptoms or concerns please get up and get out of bed, do not lift over 5lbs, do not bend down - rest x 1 week please follow up with primary care doctor you might need physical therapy or a MRI. take all medications with food while on prednisone and ibuprofen please take 20mg famotidine daily (over the counter medication) CT/CT abdomen pelvis wo IV con IMPRESSION: ? 1. No acute intra-abdominal/pelvic abnormality to explain the patient's pain. Nonobstructing left lower pole intrarenal calculus without significant change. 2. Hepatomegaly/steatosis without significant change. Prescriptions: New lidocaine 4 % adhesive patch,medicated 1 patch topical DAILY PRN (Reason: pain) Qty: 10 0RF Rx Instructions: may leave on for up to 12 hrs prednisone 20 mg tablet 20 mg PO DAILY 5 Days Qty: 5 0RF ibuprofen 600 mg tablet 600 mg PO Q6H PRN (Reason: pain) Qty: 30 0RF diazepam [Valium] 5 mg tablet 5 mg PO TID PRN (Reason: muscle spasm) Qty: 12 0RF Rx Instructions: partial fill is okay No Action albuterol sulfate [ProAir HFA] 90 mcg/actuation HFA aerosol inhaler 2 puff inhalation Q4-6H Qty: 8.5 0RF Stand Alone Forms: Work/School Release
[2021-11-25 12:16] LABS: Bacteria Urine Trace (None Seen); Hyaline Casts Urine 0-2 /LPF (0-2); RBC Urine >20 /HPF (0-2); UACC Culture Trigger YES
[2021-11-25 12:22] VITALS: BP 142/76; PULSE 72; RESP 16; O2SAT 99
[2021-11-25] MEDS: diazePAM 2 MG TABLET 5 MG PO (12:24)
[2021-11-25] MEDS: 0.9 % Sodium Chloride 1,000 ML 999 ML IV (12:24)
[2021-11-25] MEDS: Ketorolac Tromethamine 30 MG/ML VIAL IVPUSH (12:24)
== END 2021-11-25 14:54 | disposition home or self-care (01) ==
PROVIDERS: Emergency Provider Emergency Medicine; PCP Internal Medicine
DX: S39.012A Strain of muscle, fascia and tendon of lower back, initial encounter (principal); X58.XXXA Exposure to other specified factors, initial encounter; M62.830 Muscle spasm of back; Y93.9 Activity, unspecified; Y92.9 Unspecified place or not applicable; Y99.9 Unspecified external cause status
CPT/HCPCS: 36415; 74176; 80048; 81001; 81003; 81025; 85025; 87086; 87147; 96361; 96374; 99284; J1885

== ENCOUNTER 2022-03-18 14:21 | Outpatient (REF) | payer MEDICAID, SELFPAY ==
[2022-03-18 15:45] LABS: Influenza A PCR NEGATIVE (Negative); Influenza B PCR NEGATIVE (Negative); Resp Syncy Virus RNA Qual PCR NEGATIVE (Negative); SARS COV2 PCR INHOUSE NEGATIVE (Negative)
== END 2022-03-18 14:22 | disposition home or self-care (01) ==
LOC: HO.LNP 14:21
PROVIDERS: Visit Provider Internal Medicine
DX: Z20.822 Contact with and (suspected) exposure to COVID-19 (principal); R43.9 Unspecified disturbances of smell and taste
CPT/HCPCS: 0241U

== ENCOUNTER 2023-05-31 12:38 | Outpatient (AMB) | payer OTHER, SELFPAY ==
--- NOTE | 2023-05-31 13:39 | MHC.OFFWIV ---
Intake Vital Signs 05/31/23 13:41 Height 5 ft 2 in BP 130/76 Blood Pressure Location Rt brachial Position Sitting Pulse 92 Pulse Source Pulse Oximeter Pulse Oximetry (%) 97 Oxygen Delivery Method Room Air Intake Visit Reasons: EP RT ankle pain stepped in pothole Wednesday Intake Note: Pt is here c/o right ankle pain. Patient Tobacco Use Status: Never used Tobacco Allergies No Known Allergies [No Known Allergies*] Allergy (Verified 03/18/22 12:11) HPI HPI Comments History of Present Illness Details Patient presents to the walk-in today for sick visit Complaining of right ankle pain after rolling her ankle yesterday at the . She has been walking on it today but states that she is able to do this with much difficulty Pain and tenderness over lateral malleolus with limited range of motion secondary to pain PFSH Medical History V-tach Surgical History H/O: Family History Father Substance use disorder Social History Housing: House Alcohol intake: never Patient Tobacco Use Status: Never used Tobacco e-Cigarette/Vaping Use: Never Used service: No Current occupational status: employed Cognitive needs: No Hearing needs: No Vision needs: Yes Review of Systems Const All systems reviewed & are unremarkable except as noted in HPI and below Physical Exam Vital Signs: Last Vital Signs Pulse 92 05/31/23 13:41 BP 130/76 05/31/23 13:41 Pulse Ox 97 05/31/23 13:41 Oxygen Delivery Method Room Air 05/31/23 13:41 General: awake, alert, oriented. Answers questions appropriately. Fully engaged in examination. Skin: warm, dry, intact HEENT: Normocephalic. Hearing intact. Cardiac: External chest normal in appearance. Respiratory: No cough, audible wheezing or stridor. Abdomen: without gross distension. MS: Right ankle: Minimal swelling, pain and tenderness over right lateral malleolus. No bruising noted. Limited range of motion secondary to pain. Patient is weight-bearing. Neurological: Oriented to person, place, time and situation. Thought process intact. Psychiatric: Appropriate mood and affect. Good judgment and insight. Results Reviewed Results Reviewed: X-ray right ankle ordered and independently reviewed: No fracture or dislocation Assessment & Plan Assessment & Plan (1) Right ankle sprain: Code(s): S93.401A - Sprain of unspecified ligament of right ankle, initial encounter Plan X-ray right ankle ordered independently reviewed: No fracture or dislocation Aircast and crutches provided with instructions for use. Rest, ice, elevate Tylenol and Motrin as needed for pain Referral placed for Orthopedics for follow-up Return here or follow up with PCP for any new or worsening symptoms Orders: Orders XR ankle RT min 3V Today S99.919A - Unspecified injury of unspecified ankle, initial encounter Referrals Orthopedics Referral S93.401A - Sprain of unspecified ligament of right ankle, initial encounter Coding Level of Care Code Est Pt Level 4 (05736) Diagnoses Right ankle sprain S93.401A
[2023-05-31 13:41] VITALS: BP 130/76; PULSE 92; O2SAT 97
== END 2023-05-31 15:10 | disposition home or self-care (01) ==
PROVIDERS: PCP Internal Medicine; Visit Provider Registered Nurse Emergency
DX: S93.401A Sprain of unspecified ligament of right ankle, initial encounter (principal)
CPT/HCPCS: 99213

== ENCOUNTER 2023-05-31 13:47 | Outpatient (REF) | payer OTHER, SELFPAY ==
--- NOTE | ~2023-05-31 | XR_ITS ---
EXAMINATION: XR ANKLE, RIGHT CLINICAL INFORMATION: Injury of ankle COMPARISON: None available. TECHNIQUE: AP, lateral, and mortise views of the right ankle. FINDINGS: There is mild soft tissue prominence laterally compatible with soft tissue swelling or normal variation. There is no fracture. Mortise intact. Small plantar calcaneal spur. XR/XR ankle RT min 3V IMPRESSION: 1. No fracture. 2. Soft tissue swelling versus normal variation laterally.
== END 2023-05-31 13:48 | disposition home or self-care (01) ==
LOC: HO.HMGCX 13:47
PROVIDERS: PCP Internal Medicine; Visit Provider Registered Nurse Emergency
DX: S99.911A Unspecified injury of right ankle, initial encounter (principal)
CPT/HCPCS: 73610

== ENCOUNTER 2023-06-16 08:01 | Outpatient (AMB) | payer OTHER, SELFPAY ==
--- NOTE | 2023-06-16 08:09 | A.OFFVIS_ITS ---
Intake Intake Visit Reasons: N/P Right ankle sprain Intake Note: Pt is a 32 year old female who presents to the office today for a new patient visit for a right ankle sprain. Pt states this happened 05/30/23. She state she stepped off a curb and rolled her ankle. Pt states she went to walk in [facility] in [place]. Pt states she still has some swelling and has pain walking up and down stairs. Allergies No Known Allergies [No Known Allergies*] Allergy (Verified 06/16/23 08:09) Medication List - Last Reconciled 06/16/23 by Adolfo Masters PA-C No Known Home Meds HPI N/P Right ankle sprain HPI Details 32-year-old female who presents to the o ffice today for evaluation of right ankle injury after she stepped off a curb and rolled her ankle, 05/30/23. She was seen at walk-in center in [place] for her ankle and was initially using crutches after her injury. She currently states she has pain and mild swelling in her ankle which is aggravated with ambulation and going up and down the stairs. She has not had any physical therapy for her ankle. She has a history of plantar fasciitis since childhood where she experiences weakness and her ankle rolling with ambulation. [facility] Medical History V-tach Surgical History H/O: Family History Father Substance use disorder Social History Housing: House Alcohol intake: never Patient Tobacco Use Status: Never used Tobacco e-Cigarette/Vaping Use: Never Used service: No Current occupational status: employed Cognitive needs: No Hearing needs: No Vision needs: Yes Review of Systems Const All systems reviewed & are unremarkable except as noted in HPI and below Physical Exam Const General: cooperative, healthy appearing, comfortable, no acute distress, well developed and alert Orientation/consciousness: patient oriented x3 HEENT Head: Yes normal to inspection, Yes normocephalic and Yes atraumatic Eyes General: appearance normal, both eyes and all related structures Resp Effort & Inspection: normal respiratory effort and able to speak in complete sentences Cardio Rate: regular rate Peripheral pulses: Peripheral pulses 2+ throughout GI Palpation (GI): Soft to palpation Skin Lesions: no lesions Rashes: no rashes Neuro General: patient oriented x3 Extrem Other: Right ankle: Normal to inspection. Mild swelling over the lateral malleolus with tenderness along the soft tissues. She has limited plantar flexion due to discomfort. Pes planus evident bilateral feet. Weakness with perineal tendon strength. NVI. Results Reviewed Results Reviewed: xrays of the right ankle obtained at the walk in are negative for acute fracture or dislocations. Assessment & Plan Assessment & Plan (1) Right ankle sprain: Code(s): S93.401A - Sprain of unspecified ligament of right ankle, initial encounter Qualifiers: Encounter type: initial encounter Involved ligament of ankle: anterior talofibular ligament Qualified Code(s): S93.491A - Sprain of other ligament of right ankle, initial encounter (2) Bilateral pes planus: Code(s): M21.41 - Flat foot [pes planus] (acquired), right foot; M21.42 - Flat foot [pes planus] (acquired), left foot (3) Peroneal tendinitis of both lower legs: Code(s): M76.71 - Peroneal tendinitis, right leg; M76.72 - Peroneal tendinitis, left leg Plan We discussed options which include bilateral lace up ankle brace for her bilateral feet. I also gave her a prescription of anti-pronation orthotic which she can get in a medical supply store. We also discussed going to a running shoe store to help evaluate her particular pronation she has to recommend proper shoe wear. An order for physical therapy was placed and I stressed the importance of remaining consistent with her exercises and doing it at home as well to have optimal benefits. She is content with this plan and will see us back as needed. Orders: Orders PT Evaluation and Treatment Today M21.41 - Flat foot [pes planus] (acquired), right foot, M21.42 - Flat foot [pes planus] (acquired), left foot, M76.71 - Peroneal tendinitis, right leg, M76.72 - Peroneal tendinitis, left leg, S93.401A - Sprain of unspecified ligament of right ankle, initial encounter Medications: New [Anti-pronation orthotics] Anti-pronation orthotics 1 ea 0RF pes planus M21.41 - Flat foot [pes planus] (acquired), right foot, M21.42 - Flat foot [pes planus] (acquired), left foot Patient Instructions: Scribed for Adolfo Masters PA-C, by Rafal Nascimento medical records coordinator, on 06/16/2023 at 8:00 AM EST. IAdolfo PA-C, have personally reviewed and agree with the information entered by the scribe. Coding Level of Care Code New Pt Level 3 (09566) Diagnoses Sprain of anterior talofibular ligament of right ankle, initial encounter S93.882Y Encounter type: initial encounter Involved ligament of ankle: anterior talofibular ligament Bilateral pes planus M21.41; M21.42 Peroneal tendinitis of both lower legs M76.71; M76.72
== END 2023-06-16 08:40 | disposition home or self-care (01) ==
PROVIDERS: PCP Internal Medicine; Visit Provider Physician Assistant
DX: S93.491A Sprain of other ligament of right ankle, initial encounter (principal); M21.41 Flat foot [pes planus] (acquired), right foot; M21.42 Flat foot [pes planus] (acquired), left foot; M76.71 Peroneal tendinitis, right leg; M76.72 Peroneal tendinitis, left leg
CPT/HCPCS: 99203

== ENCOUNTER → 2023-06-16 08:01 | Outpatient (BNVA) | payer OTHER, SELFPAY | PROVIDERS: PCP Internal Medicine; Visit Provider Physician Assistant ==

== ENCOUNTER 2023-07-05 14:51 | Outpatient (RCR) | payer OTHER, SELFPAY ==
--- NOTE | 2023-07-05 15:57 | MHC.PT.EP ---
[facility] [place] Office [place] Office [place] Office [address] Alexandra Courtney [address] [phone] F: [phone] F: [phone] F: [phone] F: [phone] Physical Therapy Plan of Care Date of Evaluation: 07/05/23 Date of Surgery: 05/30/23 Diagnosis: R ankle sprain (RL) Assessment: pt is a 32 y/o female presenting to physical therapy w/ referring diagnosis of right ankle sprain. Impairments include pain, decreased range of motion, decreased strength, impaired functional mobility, impaired postural awareness, and altered ambulation mechanics. pt is a good candidate for skilled PT due to age, potential remediation of impairments, typical disease/condition progression and prognosis, comorbidities, and motivation. pt would benefit from skilled PT intervention to provide a tailored strengthening and stretching exercise program, functional training, gait training, postural re-training, neuromuscular re-education, modalities as needed for pain, equipment safety demonstration. Frequency and Duration: The patient will be seen 2x/wk for 4 wks Short Term Goals: pt will be I w/ HEP to promote self-management of condition. pt will improve B ankle supination by 1 MMT grade to promote improved gait pattern on even ground. Alf Goals: pt will report a statistically significant improvement in self-reported outcome measure, LEFI, to promote return to PLOF. pt will ascend/descend 12 stairs w/ reciprocal pattern using railing. Treatment Plan: Modalities to reduce pain, spasms and effusion. Manual therapy to restore motion and function. Therapeutic exercise to improve strength and flexibility. Neuromuscular re-education for posture and balance. Therapeutic activities to return to functional activities of daily living. Electronically signed by: Tiffany [place] PT, DPT Please sign and return to therapist. Thank you for your referral.
--- NOTE | 2023-08-06 13:36 | MHC.PT.DC ---
[facility] [place] Office [place] Office [place] Office [address] Alexandra Courtney [address] [phone] F: [phone] F: [phone] F: [phone] F: [phone] Physical Therapy Discharge Report Diagnosis: R ankle sprain (RL) Date of Surgery: 05/30/23 Date of Evaluation: 07/05/23 Date of Discharge: 08/06/23 Treatments to Date: 1 Cancellations to Date: 2 No Shows to Date: 4 Discharge Status: Visit Non-compliance Discharge Summary: The patient did not attend any scheduled treatment sessions and no showed four consecutive visits. She is discharged for non-compliance. Electronically signed by: Tiffany [place] PT, DPT Please sign and return to therapist. Thank you for your referral.
== END 2023-08-06 13:36 | disposition home or self-care (01) ==
LOC: HO.PT 14:51
PROVIDERS: PCP Internal Medicine; Visit Provider Physician Assistant
DX: S93.401D Sprain of unspecified ligament of right ankle, subsequent encounter (principal); M21.41 Flat foot [pes planus] (acquired), right foot; M21.42 Flat foot [pes planus] (acquired), left foot
CPT/HCPCS: 97110; 97161